=== PATIENT | female | born 1950 | race Native Hawaiian/Other Pacific Islander ===

== ENCOUNTER 2019-01-07 13:47 | Emergency (ER) | payer MEDICARE, OTHER ==
[2019-01-07 14:15] VITALS: BP 154/83
--- NOTE | 2019-01-07 14:15 | Event Note ---
ED Screening Note Date of service: 01/07/19 Time: 14:13 ED Screening Note: 68 y/o female comes in c/o left calf and ankle pain for 3 months but has gotten worst. Has some SOB. Recently travel from [place]. Denies any trauma but does admit to walking more. inrease in swelling. This initial assessment/diagnostic orders/clinical plan/treatment(s) is/are subject to change based on patients health status, clinical progression and re- assessment by fellow clinical providers in the ED. Further treatment and workup at subsequent clinical providers discretion. Patient/guardian urged not to elope from the ED as their condition may be serious if not clinically assessed and managed. Initial orders include:
--- NOTE | 2019-01-07 14:57 | XRay Report ---
CHEST PA AND LATERAL VIEWS INDICATION: SOB recent travels.. COMPARISON: None. FINDINGS: Support devices: None. Heart: Within normal limits. Lungs/Pleura: No acute pulmonary or pleural findings. IMPRESSION: 1. No significant abnormality. Signer Name: Sotero Richards MD Signed: 01/07/2019 2:53 PM Workstation Name: [id number]
--- NOTE | 2019-01-07 14:58 | XRay Report ---
LEFT ANKLE 2 VIEWS INDICATION: ankle pain and swelling. COMPARISON: No relevant prior imaging study available. FINDINGS: No acute fracture or dislocation is seen. Calcaneal enthesopathy is noted. 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 There is mild diffuse soft tissue swelling about the left ankle. There may be a small tibiotalar join t effusion. No soft tissue gas or foreign bodies. IMPRESSION: 1. Mild diffuse soft tissue swelling. 2. No acute skeletal abnormality. Signer Name: Sotero Richards MD Signed: 01/07/2019 2:54 PM Workstation Name: [id number]
--- NOTE | 2019-01-07 15:31 | Emergency Department Report ---
HPI - General Chief Complaint: Extremity Problem,Nontraumatic Time Seen by Provider: 01/07/19 14:10 - HPI HPI: PT IS ELDERLY FEMALE WHO COMES TO ER WITH BILATERAL UPPER AND LOWER EXTREMITY PAIN TODAY. NO FALL OR TRAUMA. THIS HAS BEEN OCCURRING FOR 3 MONTHS. NOTHING TAKEN AT HOME [facility] SHREDDER. TODAY THE PAIN WAS JUST WORSE SO THEY BROUGHT MOM TO ER. PT DENIES CP, SOB, HEADACHE, FEVER, CHILLS, DYSURIA. DAUGHTER RICHARD [phone] ED Past Medical Hx - Past Medical History Previous Medical History?: Yes Hx Hypertension: Yes Hx Diabetes: Yes - Family History Family history: no significant - Social History Smoking Status: Never Smoker Substance Use Type: None ED Review of Systems ROS: Stated complaint: LFT LEG/RT FOOT PAIN Other details as noted in HPI Comment: All other systems reviewed and negative Physical Exam - Physical Exam Vital Signs: Vital Signs 01/07/19 14:00 Temperature 98.0 F Pulse Rate 106 H Respiratory 18 Rate Blood Pressure 154/83 O2 Sat by Pulse 93 Oximetry Physical Exam: ALERT ORIENTED ELDERLY BUT LOOKS YOUNGER THAN STATED AGE OBESE MAEW S1S2 HR 90 ON EXAM LUNGS CTA ABD SNT NO PITTING EDEMA OF LEGS DP/PT PLUS 2 FULL ROM ALL EXTREMITIES NO WOUNDS ED Course Vital Signs 01/07/19 14:00 Temperature 98.0 F Pulse Rate 106 H Respiratory 18 Rate Blood Pressure 154/83 O2 Sat by Pulse 93 Oximetry - Reevaluation(s) Reevaluation #1: 01/08/19 12:37 NO ANSWER AT THE NUMBER PROVIDED. I WAS CALLING FAMILY TO TELL THEM URINE WAS NORMAL. VOICE MAIL BOX IS FULL ED Medical Decision Making - Lab Data Result diagrams: 01/07/19 15:59 01/07/19 15:59 - Radiology Data Radiology results: report reviewed, image reviewed - Medical Decision Making Vital Signs 01/07/19 14:00 Temperature 98.0 F Pulse Rate 106 H Respiratory 18 Rate Blood Pressure 154/83 O2 Sat by Pulse 93 Oximetry Lab Results 01/07/19 01/07/19 01/07/19 Range/Units 14:21 15:59 15:59 WBC 6.4 (4.5-11.0) K/mm3 RBC 3.97 (3.65-5.03) M/mm3 Hgb 12.3 (10.1-14.3) gm/dl Hct 36.7 (30.3-42.9) % MCV 92 (79-97) fl MCH 31 (28-32) pg MCHC 34 (30-34) % RDW 13.6 (13.2-15.2) % Plt Count 368 (140-440) K/mm3 VBG pH (7.320-7.420) Sodium 139 (137-145) mmol/L Potassium 4.2 (3.6-5.0) mmol/L Chloride 104.5 (98-107) mmol/L Carbon Dioxide 23 (22-30) mmol/L Anion Gap 16 mmol/L BUN 20 H (7-17) mg/dL Creatinine 0.5 L (0.7-1.2) mg/dL Estimated GFR > 60 ml/min BUN/Creatinine Ratio 40 % Glucose 161 H (65-100) mg/dL POC Glucose 263 H (70-105) Ketones Quantitative (Negative) Calcium 9.6 (8.4-10.2) mg/dL Total Bilirubin 0.30 (0.1-1.2) mg/dL AST 14 (5-40) units/L ALT 9 (7-56) units/L Alkaline Phosphatase 85 (35-129) units/L NT-Pro-B Natriuret Pep 106.9 (0-900) pg/mL Total Protein 7.4 (6.3-8.2) g/dL Albumin 3.7 L (3.9-5) g/dL Albumin/Globulin Ratio 1.0 % 01/07/19 01/07/19 Range/Units 15:59 15:59 WBC (4.5-11.0) K/mm3 RBC (3.65-5.03) M/mm3 Hgb (10.1-14.3) gm/dl Hct (30.3-42.9) % MCV (79-97) fl MCH (28-32) pg MCHC (30-34) % RDW (13.2-15.2) % Plt Count (140-440) K/mm3 VBG pH 7.412 (7.320-7.420) Sodium (137-145) mmol/L Potassium (3.6-5.0) mmol/L Chloride (98-107) mmol/L Carbon Dioxide (22-30) mmol/L Anion Gap mmol/L BUN (7-17) mg/dL Creatinine (0.7-1.2) mg/dL Estimated GFR ml/min BUN/Creatinine Ratio % Glucose (65-100) mg/dL POC Glucose (70-105) Ketones Quantitative Negative (Negative) Calcium (8.4-10.2) mg/dL Total Bilirubin (0.1-1.2) mg/dL AST (5-40) units/L ALT (7-56) units/L Alkaline Phosphatase (35-129) units/L NT-Pro-B Natriuret Pep (0-900) pg/mL Total Protein (6.3-8.2) g/dL Albumin (3.9-5) g/dL Albumin/Globulin Ratio % Lab Results 01/07/19 01/07/19 01/07/19 Range/Units 14:21 15:59 15:59 WBC 6.4 (4.5-11.0) K/mm3 RBC 3.97 (3.65-5.03) M/mm3 Hgb 12.3 (10.1-14.3) gm/dl Hct 36.7 (30.3-42.9) % MCV 92 (79-97) fl MCH 31 (28-32) pg MCHC 34 (30-34) % RDW 13.6 (13.2-15.2) % Plt Count 368 (140-440) K/mm3 VBG pH (7.320-7.420) Sodium 139 (137-145) mmol/L Potassium 4.2 (3.6-5.0) mmol/L Chloride 104.5 (98-107) mmol/L Carbon Dioxide 23 (22-30) mmol/L Anion Gap 16 mmol/L BUN 20 H (7-17) mg/dL Creatinine 0.5 L (0.7-1.2) mg/dL Estimated GFR > 60 ml/min BUN/Creatinine Ratio 40 % Glucose 161 H (65-100) mg/dL POC Glucose 263 H (70-105) Ketones Quantitative (Negative) Calcium 9.6 (8.4-10.2) mg/dL Total Bilirubin 0.30 (0.1-1.2) mg/dL AST 14 (5-40) units/L ALT 9 (7-56) units/L Alkaline Phosphatase 85 (35-129) units/L NT-Pro-B Natriuret Pep 106.9 (0-900) pg/mL Total Protein 7.4 (6.3-8.2) g/dL Albumin 3.7 L (3.9-5) g/dL Albumin/Globulin Ratio 1.0 % Urine Color (Yellow) Urine Turbidity (Clear) Urine pH (5.0-7.0) Ur Specific [place] (1.003-1.030) Urine Protein (Negative) mg/dL Urine Glucose (UA) (Negative) mg/dL Urine Ketones (Negative) mg/dL Urine Blood (Negative) Urine Nitrite (Negative) Urine Bilirubin (Negative) Urine Urobilinogen (<2.0) mg/dL Ur Leukocyte Esterase (Negative) Urine WBC (Auto) (0.0-6.0) /HPF Urine RBC (Auto) (0.0-6.0) /HPF U Epithel Cells (Auto) (0-13.0) /HPF Urine Bacteria (Auto) (Negative) /HPF Urine Mucus /HPF 01/07/19 01/07/19 01/07/19 Range/Units 15:59 15:59 17:13 WBC (4.5-11.0) K/mm3 RBC (3.65-5.03) M/mm3 Hgb (10.1-14.3) gm/dl Hct (30.3-42.9) % MCV (79-97) fl MCH (28-32) pg MCHC (30-34) % RDW (13.2-15.2) % Plt Count (140-440) K/mm3 VBG pH 7.412 (7.320-7.420) Sodium (137-145) mmol/L Potassium (3.6-5.0) mmol/L Chloride (98-107) mmol/L Carbon Dioxide (22-30) mmol/L Anion Gap mmol/L BUN (7-17) mg/dL Creatinine (0.7-1.2) mg/dL Estimated GFR ml/min BUN/Creatinine Ratio % Glucose (65-100) mg/dL POC Glucose (70-105) Ketones Quantitative Negative (Negative) Calcium (8.4-10.2) mg/dL Total Bilirubin (0.1-1.2) mg/dL AST (5-40) units/L ALT (7-56) units/L Alkaline Phosphatase (35-129) units/L NT-Pro-B Natriuret Pep (0-900) pg/mL Total Protein (6.3-8.2) g/dL Albumin (3.9-5) g/dL Albumin/Globulin Ratio % Urine Color Yellow (Yellow) Urine Turbidity Clear (Clear) Urine pH 5.0 (5.0-7.0) Ur Specific [place] 1.021 (1.003-1.030) Urine Protein <15 mg/dl (Negative) mg/dL Urine Glucose (UA) Neg (Negative) mg/dL Urine Ketones Neg (Negative) mg/dL Urine Blood Neg (Negative) Urine Nitrite Neg (Negative) Urine Bilirubin Neg (Negative) Urine Urobilinogen < 2.0 (<2.0) mg/dL Ur Leukocyte Esterase Tr (Negative) Urine WBC (Auto) 5.0 (0.0-6.0) /HPF Urine RBC (Auto) < 1.0 (0.0-6.0) /HPF U Epithel Cells (Auto) 7.0 (0-13.0) /HPF Urine Bacteria (Auto) 1+ (Negative) /HPF Urine Mucus Few /HPF LONG DISCUSSION WITH PT AND 2 DAUGHTERS REGARDING FINDINGS TODAY. THEY HAVE APPNT WITH PCP IN AM THAT THEY WILL KEEP FOR FURTHER EVAL. ON DC PT STATES SHE DOES FEEL BETTER THAN WHEN SHE CAME IN DC HOME WITH FAMILY AND APPROPRIATE FOLLOW UP - Differential Diagnosis RO DVT/ RO FX/ RO CHF Critical care attestation.: If time is entered above; I have spent that time in minutes in the direct care of this critically ill patient, excluding procedure time. ED Disposition Clinical Impression: Pain Disposition: DC-01 TO HOME OR SELFCARE Is pt being admited?: No Does the pt Need Aspirin: No Condition: Stable Instructions: Osteoarthritis (ED) Additional Instructions: VENOUS ULTRASOUND NEG FOR DVT; TRIPHASIC ARTERIAL FLOW XRAY ANKLE NO FRACTURE CHEST XRAY NO ACUTE FINDING LABS NOTED HERE MEDICATED IN ER WITH DECADRON 8MG IM X 1 AND MOTRIN 800 MG X 1 MOTRIN OVER THE COUNTER FOR PAIN FOLLOW UP WITH PCP ON SUNDAY SCHEDULED ACTIVITY TOLERATED DIABETIC DIET HYDRATE WELL WITH WATER Referrals: YOSVANY FRANCISCO MD [Staff Physician] - 3-5 Days Time of Disposition: 18:12
--- NOTE | 2019-01-07 16:00 | Vascular Lab Report ---
DUPLEX DOPPLER LOWER EXTREMITY VEINS, LEFT INDICATION: left calf pain recent travels. TECHNIQUE: Duplex doppler imaging was performed through the veins of the left lower extremity using venous compression and other maneuvers. COMPARISON: No relevant prior imaging study available. FINDINGS: Left Common femoral vein: Negative. Left Superficial femoral vein: Negative. Left Popliteal vein: Negative. Left Calf veins: Negative. Additional findings: None.. IMPRESSION: No sonographic evidence for DVT in the left lower extremity. Signer Name: Rasta Etienne Jr, MD Signed: 01/07/2019 3:55 PM Workstation Name: [id number]
[2019-01-07 16:18] LABS: Hematocrit 36.7 % (30.3-42.9); Hemoglobin 12.3 gm/dl (10.1-14.3); Mean Corpuscular HGB Conc 34 % (30-34); Mean Corpuscular Volume 92 fl (79-97); Platelet Count 368 K/mm3 (140-440); Red Blood Count 3.97 M/mm3 (3.65-5.03); Red Cell Distribution Width 13.6 % (13.2-15.2)
[2019-01-07 16:43] LABS: Alanine Aminotransferase 9 units/L (7-56); Albumin 3.7 g/dL (3.9-5); BUN/Creatinine Ratio 40; Blood Urea Nitrogen 20 mg/dL (7-17); Calcium 9.6 mg/dL (8.4-10.2); Hemolysis Index 29
[2019-01-07] MEDS ORDERED: IBUPROFEN PO ONE (18:12)
[2019-01-07] MEDS ORDERED: DECADRON IM ONE (18:13)
[2019-01-07 19:34] LABS: Bacteria,Urine 1+ /HPF (Negative); Bilirubin,Urine NEG (Negative); Blood,Urine NEG (Negative); Color,Urine Yellow (Yellow); Mucus,Urine FEW /HPF; Protein,Urine <15 mg/dL mg/dL (Negative); RBC,Urine < 1.0 /HPF (0.0-6.0); Urobilinogen,Urine < 2.0 mg/dL (<2.0)
== END 2019-01-07 18:36 | disposition home or self-care (01) ==
LOC: ED 13:47
DX: M79.662 Pain in left lower leg (principal); M25.572 Pain in left ankle and joints of left foot; I10 Essential (primary) hypertension; E11.9 Type 2 diabetes mellitus without complications
CPT/HCPCS: 36415; 71046; 73600; 80053; 81001; 82010; 82805; 82962; 83880; 85027; 87086; 93971; 96372; 99285; J1100